=== PATIENT | male | born 1980 | race Caucasian/White ===

== ENCOUNTER 2017-09-03 10:33 | Inpatient (IN) | payer OTHER ==
[~2017-09-03] VITALS: Ht 175.3 cm; Wt 79.4 kg
[2017-09-03 12:00] VITALS: BP 150/100
[2017-09-03 12:30] VITALS: BP 150/100
--- NOTE | 2017-09-03 12:30 | NUR ---
36 year old MALE admitted to room # 421-1 for stabilization. Reports an addiction to ALCOHOL last used 3 hours prior to admission. Compliant with admission procedure. Patient reports having anxiety, sleeplessness, tremors, sweats, restless legs, nausea, abdominal cramps, body aches and cramps, but is able to focus eyes on nurse during interview. See assessment forms for additional information about patient status.
[2017-09-03] MEDS ORDERED: PROAIR RESPICL90 MCG INH (12:48)
[2017-09-03] MEDS ORDERED: NEURONTIN100 MG PO (12:49)
[2017-09-03] MEDS ORDERED: PRINIVIL10 MG PO (12:50)
[2017-09-03] MEDS ORDERED: PAROXETINE40 MG PO (12:51)
[2017-09-03] MEDS ORDERED: OMEPRAZOLE40 MG PO (12:52)
[2017-09-03] MEDS ORDERED: ZANAFLEX CAPSULE4 MG PO (12:52)
[2017-09-03] MEDS ORDERED: SEROQUEL XR400 MG PO (12:53)
[2017-09-03] MEDS ORDERED: NEOMYCIN AND PO20 ML T (12:56)
[2017-09-03 12:59] LABS: BASO # 0.1 10*3/uL (0.0-0.1); BASO % 0.6 % (0.0-1.0); EOS # 0.3 10*3/uL (0.0-0.4); EOS % 3.3 % (1.0-4.0); HEMATOCRIT 46.9 % (42.0-52.0); HEMOGLOBIN 15.9 g/dl (14.0-18.0); LYMPH # 1.8 10*3/uL (1.3-4.4); LYMPH % 18.7 % (27.0-41.0); MEAN CELL VOLUME 96.7 fl (80.0-94.0); MEAN CORPUSCULAR HGB 32.8 pg (27.0-31.0); MEAN CORPUSCULAR HGB CONC 33.9 g/dl (33.0-37.0); MEAN PLATELET VOLUME 9.8 fl (9.6-12.3); MONO # 0.6 10*3/uL (0.1-1.0); MONO % 5.8 % (3.0-9.0); NEUT # 6.9 10*3/uL (2.3-7.9); NEUT % 71.2 % (47.0-73.0); PLATELET COUNT AUTOMATED 218 10*3/uL (130-400); RED BLOOD COUNT 4.85 10*6/uL (4.50-5.90); RED CELL DISTRI WIDTH 12.8 % (0-14.5); WHITE BLOOD COUNT 9.7 10*3/uL (4.8-10.8)
[2017-09-03 13:08] LABS: INTERNATIONAL NORM RATIO 0.9 (2.0-3.5)
[2017-09-03 13:20] LABS: ALBUMIN 4.5 gm/dl (3.1-4.5); ALKALINE PHOSPHATASE 68 U/L (45-117); BUN 8 mg/dl (7-24); CHLORIDE 101 mmol/L (98-107); CREATININE 0.78 mg/dL (0.70-1.30); POTASSIUM 3.8 mmol/L (3.5-5.1); SGOT/AST 94 IU/L (3-35); SGPT/ALT 61 U/L (12-78); SODIUM 139 mmol/L (136-145); TOTAL PROTEIN 8.4 gm/dL (6.4-8.2)
--- NOTE | 2017-09-03 13:26 | NUR ---
MED REC UPDATED/COMPLETED USING INFORMATION PROVIDED BY PATIENT, WHICH COINCIDES WITH CLAIMS HISTORY.
[2017-09-03 13:30] LABS: BILIRUBIN NEGATIVE (NEGATIVE); BLOOD NEGATIVE (NEGATIVE); CLARITY CLEAR (CLEAR); COLOR YELLOW (YELLOW); GLUCOSE NEGATIVE (NEGATIVE); KETONE NEGATIVE (NEGATIVE); LEUKO ESTERASE NEGATIVE (NEGATIVE); NITRITE NEGATIVE (NEGATIVE); PH 6.5 (5.0-9.0); SPECIFIC GRAVITY <= 1.005 (1.005-1.030); UROBILINOGEN 0.2 E.U./dl (0.2-1.0)
[2017-09-03 13:35] LABS: URINE AMPHETAMINES < 1000 (1000ng/ml); URINE BARBITURATES < 200 (200ng/ml); URINE BENZODIAZEPINES < 200 (200ng/ml); URINE CANNABINOIDS (THC) < 50 (50ng/ml); URINE COCAINE < 300 (300ng/ml); URINE METHADONE < 300 (300ng/ml); URINE OPIATES < 300 (300ng/ml)
[2017-09-03 13:36] LABS: URINE PHENCYCLIDINE < 25 (25ng/ml)
[2017-09-03 13:41] LABS: EPITHELIAL CELLS 0-2; RBC 0-2 rbc/hpf (0-2); WBC 0-2 wbc/hpf (0-5)
--- NOTE | 2017-09-03 14:30 | NUR ---
MEDICATED WITH PRN IV ATIVAN FOR ANXIETY, ALSO STARTED SCHEDULED LIBRIUM AT THIS TIME FOR WITHDRAWAL SYMPTOMS. PROVIDED NICOTROL INHALER FOR SMOKING CRAVINGS, MOTRIN AND ROBAXIN FOR BODY ACHES AND CRAMPS, AND BENTYL AND ZOFRAN FOR ABDOMINAL CRAMPS AND NAUSEA.
--- NOTE | 2017-09-03 15:21 | NUR ---
Patient resting. Responding to scheduled medications with fewer complaints of pain and anxiety; PRN MEDICATIONS SOMEWHAT EFFECTIVE FOR ANXIETY, BODY ACHES/CRAMPS AND NAUSEA, PER PATIENT.
--- NOTE | 2017-09-03 15:47 | NUR ---
D/C PLANNING: PATIENT PLAN OF ACTION IS TO GO INTO INPATIENT TREATMENT UPON DISCHARGE. PATIENT IS WORKING WITH [employer]. ELISE KELLER B.A. SUPERVISOR SCREEN PRINTING
[2017-09-03 16:00] VITALS: BP 138/88
--- NOTE | 2017-09-03 17:26 | NUR ---
PATIENT C/O NAUSEA AND EMESIS X 1, ALSO REQUESTING A BREATHING TREATMENT FOR WHEEZING.
--- NOTE | 2017-09-03 17:30 | NUR ---
MEDICATED WITH PRN MAALOX FOR NAUSEA, PAGED RESPIRATORY THERAPIST FOR A BREATHING TREATMENT.
--- NOTE | 2017-09-03 19:01 | NUR ---
PRN PO TYLENOL AND VISTARIL SOMEWHAT EFFECTIVE, PER PATIENT.
[2017-09-03 20:00] VITALS: BP 135/79
--- NOTE | 2017-09-03 20:45 | NUR ---
PRN ZOFRAN ADMINISTERED TO PT. FOR COMPLAINTS OF NAUSEA, WILL CONTINE TO MONITOR.
--- NOTE | 2017-09-03 21:00 | NUR ---
PRN ZOFRAN EFFECTIVE PER PT.
[2017-09-04] VITALS: BP 136/83
--- NOTE | 2017-09-04 04:05 | NUR ---
PRN ZOFRAN ADMINISTERED TO PT. FOR COMPLAINTS OF NAUSEA. WILL CONTINUE TO MONITOR.
--- NOTE | 2017-09-04 06:19 | NUR ---
PRN ROBAXIN GIVEN PER PT. REQUEST FOR MUSCLE ACHES. WILL MONITOR EFFECTS.
--- NOTE | 2017-09-04 06:45 | NUR ---
PRN ROBAXIN SEEMS TO BE EFFECTIVE. PT. IS RESTING COMFORTABLY WITH EASY AND REGULAR RESPIRATIONS.
[2017-09-04 08:00] VITALS: BP 157/98
--- NOTE | 2017-09-04 08:05 | NUR ---
Patient displaying withdrawal symptoms, including: NAUSEA, VOMITTING, AND DIARRHEA. Patient scores a 5 on the withdrawal scale. Scheduled/PRN medications provided. Will continue to monitor medication effectiveness.
--- NOTE | 2017-09-04 09:00 | NUR ---
ZOFRAN EFFECTIVE FOR NAUSEA.
--- NOTE | 2017-09-04 09:43 | NUR ---
IBUPROFEN 600MG GIVEN PER PATIENT REQUEST FOR RIGHT SHOULDER PAIN RATING A 7/10 ON PAINSCALE.
--- NOTE | 2017-09-04 10:45 | NUR ---
PATIENT SLEEPING WITH NO SIGNS OF DISTRESS. IBUPROFEN EFFECTIVE.
--- NOTE | 2017-09-04 13:57 | NUR ---
Patient displaying withdrawal symptoms, including: DIARRHEA Scheduled/PRN medications provided. Will continue to monitor medication effectiveness.
--- NOTE | 2017-09-04 14:52 | NUR ---
Nutritional Support Services Note: Dx of alcohol abuse, new vision patient. Toenail removed on great toe. Recommended to pt increase need for calories and protein to promote healing. Appetite is improving. Pt listened. Will follow if needed. Alivia Lee
[2017-09-04 16:00] VITALS: BP 140/73
[2017-09-04 20:00] VITALS: BP 133/77
--- NOTE | 2017-09-04 21:43 | NUR ---
PATIENT HAS COMPLAINTS OF RESTLESS LEG AND PAIN IN RT ARM FROM SURGERY. PATIENT ALSO STATED HE HAS TROUBLE SLEEPING. ROBAXIN, MOTRIN, AND TRAZADONE GIVEN. WILL REASSESS.
--- NOTE | 2017-09-04 22:41 | NUR ---
24 HR chart check completed.
[2017-09-05] VITALS: BP 108/62
[2017-09-05 06:28] LABS: BASO % 0.4 % (0.0-1.0); EOS # 0.6 10*3/uL (0.0-0.4); EOS % 8.5 % (1.0-4.0); MEAN CORPUSCULAR HGB 34.1 pg (27.0-31.0); MEAN CORPUSCULAR HGB CONC 33.7 g/dl (33.0-37.0); MEAN PLATELET VOLUME 10.6 fl (9.6-12.3); MONO # 0.5 10*3/uL (0.1-1.0); NEUT # 4.3 10*3/uL (2.3-7.9); NEUT % 57.7 % (47.0-73.0); RED BLOOD COUNT 3.84 10*6/uL (4.50-5.90); WHITE BLOOD COUNT 7.5 10*3/uL (4.8-10.8)
[2017-09-05 06:31] LABS: HEMATOCRIT 38.9 % (42.0-52.0); HEMOGLOBIN 13.1 g/dl (14.0-18.0); MEAN CELL VOLUME 101.3 fl (80.0-94.0); PLATELET COUNT AUTOMATED 144 10*3/uL (130-400)
[2017-09-05 06:34] LABS: CREATININE 0.75 mg/dL (0.70-1.30)
[2017-09-05 08:00] VITALS: BP 121/76
--- NOTE | 2017-09-05 08:00 | NUR ---
SHIFT ASSESSMENT COMPLETED. PATIENT VOICES NO CONCERNS AT THIS TIME. BED IN LOW POSITION. CALL LIGHT WITHIN REACH.
[2017-09-05 16:00] VITALS: BP 134/71
[2017-09-05 20:00] VITALS: BP 134/81
[2017-09-06] VITALS: BP 144/85
--- NOTE | 2017-09-06 05:43 | NUR ---
PATIENT IV OUT AT THIS TIME AFTER DOSE OF SOLU-MEDROL GIVEN. SMALL AMOUNT LEAKED OUT. DR. SMITH NOTIFIED. THIS NURSE STATED THE ONLY THING HE IS GETTING IS IV SOLUMEDROL AND THE NEXT DOSE IS AT 2PM. THIS NURSE STATED THIS IS THE PATIENTS 4TH IV AND HE DOESNT WANT ANOTHER ONE SINCE HE STATES HE IS BEING DISCHARGED. DR. SMITH STATED IT IS OK TO LEAVE IT OUT AND TO REASSESS FOR IV ACCESS AT 2PM AND IF HES GOING TO BE DISCHARGED IT WILL PROBABLY BE BEFORE THEN.
[2017-09-06 08:00] VITALS: BP 140/70
[2017-09-06] MEDS ORDERED: LEVOFLOXACIN500 MG PO (10:17)
[2017-09-06] MEDS ORDERED: NATURE'S BLEND100 M2 PO (10:17)
[2017-09-06] MEDS ORDERED: PREDNISONE10 MG PO (10:17)
[2017-09-06] MEDS ORDERED: NATURE'S BLEND F1 MG PO (10:17)
[2017-09-06] MEDS ORDERED: THERA TABLET400 MCG PO (10:17)
--- NOTE | 2017-09-06 11:00 | NUR ---
pt ambulated off the floor to [facility] for his ride outside. monitoring manager discontinued.
== END 2017-09-06 11:00 | disposition home or self-care (01) | DRG 897 ==
LOC: 4E 10:33
PROVIDERS: Internal Medicine Nephrology; ADMIT Internal Medicine
DX: F10.239 Alcohol dependence with withdrawal, unspecified (principal); R65.10 Systemic inflammatory response syndrome (SIRS) of non-infectious origin without acute organ dysfunction; J44.1 Chronic obstructive pulmonary disease with (acute) exacerbation; S91.109A Unspecified open wound of unspecified toe(s) without damage to nail, initial encounter; I10 Essential (primary) hypertension; D75.89 Other specified diseases of blood and blood-forming organs; M79.2 Neuralgia and neuritis, unspecified; F32.9 Major depressive disorder, single episode, unspecified; F41.9 Anxiety disorder, unspecified; E66.3 Overweight; J20.9 Acute bronchitis, unspecified; K21.9 Gastro-esophageal reflux disease without esophagitis; F17.210 Nicotine dependence, cigarettes, uncomplicated; Z80.1 Family history of malignant neoplasm of trachea, bronchus and lung; Z79.899 Other long term (current) drug therapy; Z71.6 Tobacco abuse counseling; Z68.25 Body mass index [BMI] 25.0-25.9, adult